=== PATIENT | male | born 1970 | race Caucasian/White ===

== ENCOUNTER 2020-10-13 17:19 | Emergency (ER) | payer OTHER, SELFPAY ==
[2020-10-13 17:24] VITALS: BP 150/88; PULSE 61; RESP 20; TEMP 37.2; O2SAT 100
--- NOTE | 2020-10-13 17:30 | ED.SKABFB ---
HPI - Skin/Abscess/Foreign Bdy General Chief complaint: Skin/Abscess/Foreign Body Stated complaint: knot on back Time Seen by Provider: 10/13/20 17:30 Source: patient and RN notes reviewed History of Present Illness HPI narrative: Patient is a 50-year-old male who presents the urgent care with complaints of a knot on the back. Patient states that while she did do it became larger in the last 2 days. States that he is known about it for quite some time and has not followed up with a creeler that he was referred to from his primary care doctor. Patient denies any fevers, nausea, vomiting. Patient states that his has been squeezing on the area and getting out yellow pus . No other acute complaints. No acute distress noted. Patient aware of the plan of care. Some parts of this dictation were generated by voice recognition software and may contain typographical and/or grammatical inaccuracies. Related Data Allergies Allergy/AdvReac Type Severity Reaction Status Date / Time No Known Allergies Allergy Verified 10/13/20 17:32 Review of Systems Review of Systems: Narrative: CONSTITUTIONAL: Denies fever, chills, or sweats. EYES: Denies visual changes, redness, or discharge. ENT: Denies rhinorrhea, congestion, sore throat, or otalgia. CARDIOVASCULAR: Denies chest pain, palpitations, or edema. RESPIRATORY: Denies cough or dyspnea. GASTROINTESTINAL: Denies abdominal pain, nausea, vomiting, or diarrhea. GENITOURINARY: Denies dysuria or hematuria. SKIN: Reports of a large knot on the back. MUSCULOSKELETAL: Denies back pain, joint pain, or myalgia. NEUROLOGIC: Denies headache, numbness, or weakness. All other systems reviewed are negative, except as documented in HPI. [facility] Past Medical History Medical History (Updated 10/13/20 @ 17:56 by SUSIE Barron) Hypercholesterolemia Thoracic cyst Type 2 diabetes mellitus Surgical History Surgical History (Updated 06/27/19 @ 07:21 by Emma Zabala CMA) H/O knee surgery Family History Family History (Updated 11/27/17 @ 16:18 by DOCTOR UNKNOWN) Mother Cerebrovascular accident Family history of diabetes mellitus in first degree relative Family history of emphysema Diabetes mellitus Father Family history of emphysema Other Family history of congestive heart failure Social History Social History (Updated 12/25/19 @ 14:34 by Shabana Dumas [facility]) Smoking status: Never smoker Alcohol intake: current Comments At the time of my signature, I reviewed and agree with the nursing past medical, surgical, social, and family history. There is no relevant family history pertinent to the patient complaint. Exam Narrative: Exam Narrative: GENERAL: This is a well-nourished, well-developed patient, in no apparent distress. HEAD: normocephalic, atraumatic. EYES: PERRL. Sclera clear/white. Vision is grossly intact. EARS: External ears normal NOSE: External nose normal with no obvious nasal discharge, nares without redness, no rhinorrhea. THROAT: Mucous membranes moist NECK: Neck supple CARDIOVASCULAR: Regular rate and rhythm without murmurs, gallops, or rubs. RESPIRATORY: Clear to auscultation. Breath sounds equal bilaterally. No wheezes, rales, or rhonchi. SKIN: 3 x 6 cm fluctuant to firm erythemic abscess noted to the mid upper back with notable thick yellow drainage NEURO: awake, alert, and oriented to person, place and time. There were no obvious focal neurologic abnormalities. EXTREMITIES: No clubbing, cyanosis, or edema. Course Vital Signs Vital signs: Vital Signs Temperature 98.9 F 10/13/20 17:24 Pulse Rate 61 10/13/20 17:24 Respiratory Rate 20 10/13/20 17:24 Blood Pressure 150/88 H 10/13/20 17:24 Pulse Oximetry 100 10/13/20 17:24 Temperature 98.9 F 10/13/20 17:24 Pulse Rate 61 10/13/20 17:24 Respiratory Rate 20 10/13/20 17:24 Blood Pressure 150/88 H 10/13/20 17:24 Pulse Oximetry 100 10/13/20 17:24 R
== END 2020-10-13 18:00 | disposition home or self-care (01) ==
PROVIDERS: Emergency Provider Nurse Practitioner Family; PCP Internal Medicine
DX: L02.212 Cutaneous abscess of back [any part, except buttock and flank] (principal); E78.00 Pure hypercholesterolemia, unspecified; E11.9 Type 2 diabetes mellitus without complications; R03.0 Elevated blood-pressure reading, without diagnosis of hypertension; Z79.84 Long term (current) use of oral hypoglycemic drugs
CPT/HCPCS: 10060; 87070; 87205; 99213; G0463

== ENCOUNTER 2021-04-12 13:39 | Outpatient (CLI) | payer OTHER, SELFPAY ==
--- NOTE | ~2021-04-12 | XR_ITS ---
XR knee RT min 4V 04/12/2021 14:16 Indication: Right knee pain Procedure: 5 views right knee Comparison: No prior studies for comparison. Findings: No fracture, subluxation or dislocation. There is mild osteoarthritis. There are surgical c hanges of ACL reconstruction. No significant joint effusion. No soft tissue abnormality. Impression: 1: Mild tricompartment osteoarthritis. Reviewed, dictated and finalized at location B. GLASS SETTER Impression: 1: Mild tricompartment osteoarthritis.
--- NOTE | ~2021-04-12 | XR_ITS ---
EXAMINATION: XR knee LT min 4V DATE: 04/12/2021 14:16 INDICATION: Knee pain. TECHNIQUE: 5 views of left knee were obtained. COMPARISON: None. FINDINGS: Bone alignment is normal. No fracture. There is mild osteoarthritis of medial and patellofe moral compartments characterized by marginal osteophytes. No joint space narrowing. No knee joint eff usion. IMPRESSION: 1. Mild left knee osteoarthritis. Reviewed, dictated and finalized at location A. GE LABORER
== END 2021-04-12 13:40 | disposition home or self-care (01) ==
LOC: ANHIMG 13:41
PROVIDERS: PCP Internal Medicine; Visit Provider Clinical Nurse Specialist
DX: M25.561 Pain in right knee (principal); M17.0 Bilateral primary osteoarthritis of knee
CPT/HCPCS: 73564

== ENCOUNTER 2022-08-12 12:17 | Emergency (ER) | payer OTHER, SELFPAY ==
[2022-08-12 12:22] VITALS: BP 140/85; PULSE 69; RESP 16; TEMP 37.1; O2SAT 99
--- NOTE | 2022-08-12 12:29 | ED.URI ---
HPI - URI/Sore Throat General Chief Complaint: Upper Respiratory Infection Stated Complaint: cough Source: patient and RN notes reviewed History of Present Illness HPI Narrative: 51 yo male presents to urgent care with complaints of a cough x4 days. Patient states he has had a sore throat x2 days and the night before last, he woke up in a pool of sweat. Patient denies any congestion, ear pain, headache, shortness of breath, chest pain, vomiting, or diarrhea. Patient has not taken anything for his symptoms. Some parts of this dictation were generated by voice recognition software and may contain typographical and/or grammatical inaccuracies. Related Data Allergies Allergy/AdvReac Type Severity Reaction Status Date / Time adhesive tape Allergy Mild Rash Verified 08/12/22 12:38 Review of Systems Review of Systems: Pertinent positives and pertinent negatives per HPI. PMFSH Past Medical History Medical History Hypercholesterolemia Memory loss Sleep disorder Thoracic cyst Type 2 diabetes mellitus Unintentional weight loss Vision changes Surgical History Surgical History H/O knee surgery Right knee ACL repair ~25yrs ago Family History Family History Mother Cerebrovascular accident Family history of diabetes mellitus in first degree relative Family history of emphysema Diabetes mellitus Father Family history of emphysema Sibling , age 40 Heart disease Sibling , age 42 Lung cancer Grandparent Cerebrovascular accident Other Acute myocardial infarction Family history of congestive heart failure High cholesterol Hypertension Social History Social History Smoking status: Never smoker Alcohol intake: former Alcohol use details: rarely Substance use: never Living arrangements: with family Occupation/Education: occupation Additional occupation/education comments: [employer] Gender identity (if verbalized by the patient): Male Comments At the time of my signature, I reviewed and agree with the nursing past medical, surgical, social, and family history. There is no relevant family history pertinent to the patient complaint. Exam Narrative: GENERAL: This is a well-nourished, well-developed patient, in no apparent distress. HEAD: normocephalic, atraumatic. EYES: PERRL. Sclera clear/white. Vision is grossly intact. EARS: External ears normal, auditory canals clear and without drainage, TMs normal without perforation. Hearing grossly intact. NOSE: External nose normal with no obvious nasal discharge, nares without redness, no rhinorrhea. THROAT: Mucous membranes moist, posterior pharynx clear. NECK: Neck supple, non-tender without lymphadenopathy, masses or thyromegaly. CARDIOVASCULAR: Regular rate and rhythm without murmurs, gallops, or rubs. RESPIRATORY: Clear to auscultation. Breath sounds equal bilaterally. No wheezes, rales, or rhonchi. GASTROINTESTINAL: Abdomen soft, non-tender, nondistended. Bowel sounds are active. No hepato-splenomegaly, or palpable masses. No guarding. SKIN: warm, intact with no suspicious lesions or rash, good texture and turgor. NEURO: awake, alert, and oriented to person, place and time. There were no obvious focal neurologic abnormalities. Course Course Level of Care: Express Care Visit Vital Signs Vital signs: Vital Signs Temperature 98.8 F 08/12/22 12:22 Pulse Rate 69 08/12/22 12:22 Respiratory Rate 16 08/12/22 12:22 Blood Pressure 140/85 08/12/22 12:22 Pulse Oximetry 99 08/12/22 12:22 Oxygen Delivery Room Air 08/12/22 12:22 Temperature 98.8 F 08/12/22 12:22 Pulse Rate 69 08/12/22 12:22 Respiratory Rate 16 08/12/22 12:22 Blood Pressure 140/85 08/12/22 12:22 Pulse
== END 2022-08-12 12:50 | disposition home or self-care (01) ==
PROVIDERS: Emergency Provider Nurse Practitioner Family; PCP Internal Medicine
DX: J40 Bronchitis, not specified as acute or chronic (principal); E78.00 Pure hypercholesterolemia, unspecified; E11.9 Type 2 diabetes mellitus without complications
CPT/HCPCS: 87081; 87880; 99213; G0463

== ENCOUNTER 2023-05-10 10:38 | Emergency (ER) | payer OTHER, SELFPAY ==
[2023-05-10 10:46] VITALS: BP 142/86; PULSE 81; RESP 16; TEMP 36.9; O2SAT 96
--- NOTE | 2023-05-10 11:01 | ED.GENADULT ---
HPI - General Adult General Chief complaint: Upper Respiratory Infection Stated complaint: head/chest congestion Source: patient, RN notes reviewed and old records reviewed Mode of arrival: ambulatory Limitations: no limitations History of Present Illness HPI narrative: 52-year-old male presents to [facility] with productive cough, sinus congestion, headache that started Monday. Patient is not taking any medications for symptoms. Patient denies dizziness, weakness, chest pain, shortness of breath. MD complaint: Cough, congestion Onset (ago): day(s) (5) Related Data Allergies Allergy/AdvReac Type Severity Reaction Status Date / Time adhesive tape Allergy Mild Rash Verified 05/10/23 10:54 Review of Systems Constitutional: Constitutional: Reports no additional constitutional complaints, Denies body ache(s), Denies chills, Denies fatigue, Denies fever(s) and Denies headache(s) Eyes: Eyes: Reports no additional eye complaints and Denies blurry vision ENT: Reports system reviewed and no additional complaints, except as documented, Denies vertigo, Denies dizziness, Denies ear discharge, Denies otalgia, Denies facial pain, Denies headache(s), Reports nasal congestion, Reports nasal discharge, Denies sinus pain, Reports sinus pressure and Denies sore throat Cardiovascular: Cardiovascular: Reports no additional cardiovascular complaints, Denies chest pain, Denies chest pain at rest, Denies rapid heart rate and Denies dyspnea Respiratory: Respiratory: Reports no additional respiratory complaints, Reports chest congestion, Reports cough, Denies pain on inspiration, Denies pain with cough and Denies dyspnea Gastrointestinal: Gastrointestinal: Denies abdominal pain, Denies diarrhea, Denies nausea and Denies vomiting Integumentary/Breasts: Skin/Breast: Denies rash Neurologic: Reports system reviewed and no additional complaints, except as documented, Denies vertigo, Denies dizziness and Denies headache(s) Endocrine: Endocrine: Denies fatigue PMFSH Past Medical History Medical History Hypercholesterolemia Memory loss Sleep disorder Thoracic cyst Type 2 diabetes mellitus Unintentional weight loss Vision changes Surgical History Surgical History H/O knee surgery Right knee ACL repair ~25yrs ago Family History Family History Mother Cerebrovascular accident Family history of diabetes mellitus in first degree relative Family history of emphysema Diabetes mellitus Father Family history of emphysema Sibling , age 40 Heart disease Sibling , age 42 Lung cancer Grandparent Cerebrovascular accident Other Acute myocardial infarction Family history of congestive heart failure High cholesterol Hypertension Social History Social History Smoking status: Never smoker Alcohol intake: former Alcohol use details: rarely Substance use: never Living arrangements: with family Occupation/Education: occupation Additional occupation/education comments: [employer] Gender identity (if verbalized by the patient): Male Comments At the time of my signature, I reviewed and agree with the nursing past medical, surgical, social, and family history. There is no relevant family history pertinent to the patient complaint. Exam Const: General: cooperative, healthy appearing, no acute distress and well nourished Nutritional Appearance: well nourished Orientation/consciousness: patient oriented x3 Limitations: no limitations HENMT: Head: normal to inspection and normocephalic Ears: external ears normal, TM's normal bilaterally, mastoids normal and Abnormal EAC present Face/Nose/Sinus: normal facial exam Face and sinus: normal facial exam Mouth: Yes Normal or
== END 2023-05-10 11:11 | disposition home or self-care (01) ==
PROVIDERS: Emergency Provider Registered Nurse; PCP Internal Medicine
DX: J06.9 Acute upper respiratory infection, unspecified (principal); E78.00 Pure hypercholesterolemia, unspecified; E11.9 Type 2 diabetes mellitus without complications
CPT/HCPCS: 99213; G0463

== ENCOUNTER 2025-01-10 01:29 | Day surgery (SDC) | payer BC, SELFPAY ==
[2024-12-25 13:26] VITALS: BMI 30.7
[2025-01-10 12:08] VITALS: BP 131/82; PULSE 78; RESP 16; TEMP 36.4; O2SAT 99; BMI 30.1
[2025-01-10] MEDS: LACTATED RINGERS 1,000 ML 150 ML IV CONT (12:15)
--- NOTE | 2025-01-10 12:45 | WPDANESEPPF ---
Anes - Initial Pre Proc Eval Procedure: Operation Date: 01/10/25 13:30 Proposed Procedures p Diagnostic Colonoscopy - Ramon Coleman MD Date/Time: 01/10/25 12:45 Surgeon: Ramon Coleman MD Pre Op Diagnosis: Other fecal abnormalities Patient Data Age: 54 Gender: M Height: 1.78 m Weight: 95.3 kg Last Vital Signs Temp 36.4 C L 01/10/25 12:08 Pulse 78 01/10/25 12:08 Resp 16 01/10/25 12:08 BP 131/82 01/10/25 12:08 Pulse Ox 99 01/10/25 12:08 O2 Del Method Room Air 01/10/25 12:08 Allergies Allergy/AdvReac Type Severity Reaction Status Date / Time adhesive tape Allergy Mild Rash Verified 01/10/25 12:07 Home Medications ?Medication ?Instructions ?Recorded ?Confirmed ?Type pravastatin 10 mg tablet 10 mg PO DAILY #90 tabs 12/02/24 01/10/25 Rx Patient hx anesthesia problems: none Family hx anesthesia problems: none Results Review: All pre-operative results and documents have been reviewed as part of the pre-operative evaluation. [facility] Past Medical History Medical History Sleep disorder Vision changes Memory loss Unintentional weight loss Thoracic cyst Type 2 diabetes mellitus Hypercholesterolemia Surgical History Surgical History H/O knee surgery Right knee ACL repair ~25yrs ago Family History Family History Mother Cerebrovascular accident Family history of diabetes mellitus in first degree relative Family history of emphysema Diabetes mellitus Father Family history of emphysema Sibling , age 40 Heart disease Sibling , age 42 Lung cancer Grandparent Cerebrovascular accident Other Acute myocardial infarction Family history of congestive heart failure High cholesterol Hypertension Social History Social History Smoking status: Never smoker Alcohol intake: former Alcohol use details: rarely Substance use: never Living arrangements: with family Occupation/Education: occupation Additional occupation/education comments: [employer] Driver Gender identity (if verbalized by the patient): Male Spiritual care concerns: No Anes - Eval Final PreProcedure Day of Procedure 01/10/25 12:45 Patient weight: obese Heart: regular rate and rhythm Lungs: clear to auscultation Airway: Mallampati scale class II Neurological: alert and oriented Last oral intake: >/= 8 hours ASA classification: III Emergent: no Anesthetic plan: proceed Anesthesia type and monitoring: general GIVS and standard monitoring Results Review: All pre-operative results and documents have been reviewed as part of the pre-operative evaluation. Informed Consent: The patient's anesthetic plan and its attendant risks and benefits were discussed with the patient/family/POA. Questions were solicited and answers provided to the satisfaction of the patient/family/POA.
--- NOTE | 2025-01-10 13:08 | P.HP_ITS ---
History of Present Illness History of Present Illness Consent: Risks, benefits, and alternatives have been discussed and questions answered. Patient agrees to proceed with procedure. Chief complaint: Other fecal abnormalities Narrative: Wilman Ramos is a 54 year old male here for first colonoscopy, + cologuard Review of Systems Review of Systems: All systems reviewed & are unremarkable except as noted in HPI and below PMFSH Past Medical History Medical History Sleep disorder Vision changes Memory loss Unintentional weight loss Thoracic cyst Type 2 diabetes mellitus Hypercholesterolemia Surgical History Surgical History H/O knee surgery Right knee ACL repair ~25yrs ago Family History Family History Mother Cerebrovascular accident Family history of diabetes mellitus in first degree relative Family history of emphysema Diabetes mellitus Father Family history of emphysema Sibling , age 40 Heart disease Sibling , age 42 Lung cancer Grandparent Cerebrovascular accident Other Acute myocardial infarction Family history of congestive heart failure High cholesterol Hypertension Social History Social History Smoking status: Never smoker Alcohol intake: former Alcohol use details: rarely Substance use: never Living arrangements: with family Occupation/Education: occupation 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 Gender identity (if verbalized by the patient): Male Spiritual care concerns: No Meds Home Medications and Allergies Home Medications ?Medication ?Instructions ?Recorded ?Confirmed ?Type pravastatin 10 mg tablet 10 mg PO DAILY #90 tabs 11/1301/10/25 Rx Allergies Allergy/AdvReac Type Severity Reaction Status Date / Time adhesive tape Allergy Mild Rash Verified 01/10/25 12:07 Vital Signs Vital Signs - 24 hr 01/10/25 12:08 Temperature 97.5 F L Pulse Rate 78 Respiratory Rate 16 Blood Pressure 131/82 Pulse Oximetry 99 Oxygen Delivery Room Air Exam Const: General: comfortable and no acute distress HENMT: Face/Nose/Sinus: Normal nares present Eyes: General: appearance normal, both eyes and all related structures Neck: Neck: no JVD Resp: Auscultation: clear to auscultation bilaterally Cardio: Rate: regular rate Rhythm: regular rhythm GI: Inspection: non-distended GI Palp: Yes Soft to palpation Skin: General skin exam: normal color Neuro: Speech: normal speech Extrem: General: normal to inspection Psych: Mental Status: mental status grossly normal Assessment and Plan Assessment and plan (1) Positive colorectal cancer screening using Cologuard test: Code(s): R19.5 - Other fecal abnormalities Status: Acute Assessment and Plan: colonoscopy
[2025-01-10 13:21] VITALS: BP 105/66; PULSE 57; RESP 17; O2SAT 97
--- NOTE | 2025-01-10 13:22 | S_PTH ---
PATIENT: Wilman Ramos LOC: [facility]#:[id number] AGE/SX: 54/M ROOM: RE01/10/[address]: Ramon Coleman MD : 1970 BED: DIS: 01/10/2025 SPEC #: [id number] RECD: 01/10/25 13:25 STATUS: YESICA REQ #: [id number] VASQUEZ: 01/10/25 13:[address]: Ramon Coleman DEPT: [facility] Surgical RECD BY: Reji Delgado ENTERED: 01/10/25 13:26 SP TYPE: Surgical OTHR DR: Wilman Soto DO Tissues: A - Colon Polypectomy B - Colon Polypectomy C - Colon Polypectomy Procedures: Hematoxylin and Eosin Stain Gross and Microscopic Level 4
[2025-01-10 13:31] VITALS: BP 107/66; PULSE 66; RESP 18; O2SAT 97
[2025-01-10 13:41] VITALS: BP 127/80; PULSE 65; RESP 20; O2SAT 98
== END 2025-01-10 13:48 | disposition home or self-care (01) ==
PROVIDERS: PCP Internal Medicine; Referring Provider Clinical Nurse Specialist; Visit Provider Internal Medicine Gastroenterology
PROC: 0DJD8ZZ Inspection of Lower Intestinal Tract, Via Natural or Artificial Opening Endoscopic (ICD-10-PCS; CPT 45378; principal; 2025-01-10 13:30)
DX: D12.0 Benign neoplasm of cecum (principal); K63.5 Polyp of colon; K57.30 Diverticulosis of large intestine without perforation or abscess without bleeding; E11.9 Type 2 diabetes mellitus without complications; E78.00 Pure hypercholesterolemia, unspecified; G47.9 Sleep disorder, unspecified; R41.3 Other amnesia; E66.9 Obesity, unspecified; Z68.30 Body mass index [BMI] 30.0-30.9, adult; Z98.890 Other specified postprocedural states; Z80.1 Family history of malignant neoplasm of trachea, bronchus and lung; Z82.49 Family history of ischemic heart disease and other diseases of the circulatory system
CPT/HCPCS: 45385; 88305; J2704; J7120